=== PATIENT | female | born 1985 | race Hispanic/Latino ===

== ENCOUNTER 2017-10-26 14:01 | Outpatient (CLI) | payer BC | END 2017-10-26 14:02 | disposition home or self-care (01) | LOC: DTY/OP 14:01 | PROVIDERS: ATTEND Surgery | DX: E66.01 Morbid (severe) obesity due to excess calories (principal) | CPT/HCPCS: 97802 ==

== ENCOUNTER 2017-11-18 08:40 | Emergency (ER) | payer BC ==
[2017-11-18 09:12] LABS: Bilirubin Negative (Negative); Blood, Urine Negative (Negative); Clarity Slightly Cloudy (Clear); Glucose, Urine (Dipstick) Negative (Negative); Leukocyte Negative (Negative); Nitrite Negative (Negative); Protein, Urine (Dipstick) Negative (Neg-Trace); Urobilinogen 0.2 mg/dL (0.2-1.0); pH, Urine 6.5 (5.0-9.0)
[2017-11-18 09:13] LABS: Pregnancy Test - Urine (BHCG) Negative (Negative); Pregu Control Background? CLEAR/WHITE (CLR/WHITE); Pregu Control Bar Appear? YES (CONTROL BAR)
[2017-11-18] MEDS ORDERED: Ketorolac Tromethamine 60 MG/2 ML VIAL ONE (09:39)
== END 2017-11-18 10:05 | disposition home or self-care (01) ==
LOC: SCSER 08:40
DX: S29.012A Strain of muscle and tendon of back wall of thorax, initial encounter (principal); E28.2 Polycystic ovarian syndrome; F32.9 Major depressive disorder, single episode, unspecified; X58.XXXA Exposure to other specified factors, initial encounter
CPT/HCPCS: 81003; 81025; 96372; J1885

== ENCOUNTER 2017-12-21 09:00 | Inpatient (IN) | payer BC ==
[2017-12-28] MEDS ORDERED: Heparin 5,000 UNITS/ML VIAL ONE (06:17)
[2017-12-28] MEDS ORDERED: Fentanyl 250 MCG/5 ML VIAL ONE (07:02)
[2017-12-28] MEDS ORDERED: Bupivacaine/Epinephrine 0.25% 30 ML VIAL ONE (07:03)
[2017-12-28] MEDS ORDERED: Levofloxacin 500 mg/D5W 100 ml Premix Bag ONE (07:20)
[2017-12-28] MEDS ORDERED: Midazolam HCl 2 mg/2 ml Vial ONE (07:20)
[2017-12-28] MEDS ORDERED: Ondansetron HCl/PF 4 MG/2 ML Vial ONE ×2 (07:29→16:10)
[2017-12-28] MEDS ORDERED: Promethazine HCl 25 MG/ML VIAL SLOW IVP PRN (08:32)
[2017-12-28] MEDS ORDERED: Promethazine HCl 25 MG/ML VIAL IM PRN ×3 (08:32→10:39)
[2017-12-28] MEDS ORDERED: Ondansetron HCl/PF 4 MG/2 ML Vial IVP PRN ×3 (08:32→10:39)
[2017-12-28] MEDS ORDERED: Zolpidem Tartrate 5 MG TAB PO PRN (09:04)
[2017-12-28] MEDS ORDERED: diphenhydrAMINE 25 MG CAP PO PRN (09:04)
[2017-12-28] MEDS ORDERED: diphenhydrAMINE 50 MG/ML VIAL IM PRN (09:04)
[2017-12-28] MEDS ORDERED: Naloxone HCl 0.4 mg/ml Vial IV PRN (09:04)
[2017-12-28] MEDS ORDERED: Fentanyl 5000 MCG/250 ML CADD IVPB PRN (09:04)
[2017-12-28] MEDS ORDERED: diphenhydrAMINE 50 MG/ML VIAL IVP PRN ×2 (09:04→10:39)
[2017-12-28] MEDS ORDERED: Communication Order-Pharmacy FS SCH (09:15)
[2017-12-28] MEDS ORDERED: fentaNYL Citrate/PF 2,000 MCG in Sodium Chloride 0.9% 60 ML IV PRN (09:30)
[2017-12-28] MEDS ORDERED: Fentanyl 100 MCG/2 ML VIAL ONE (09:38)
--- NOTE | 2017-12-28 10:10 | OP ---
DATE OF PROCEDURE: 12/28/2017 PREOPERATIVE DIAGNOSIS: Morbid obesity with a body mass index of 41. POSTOPERATIVE DIAGNOSIS: Morbid obesity with a body mass index of 41. PROCEDURE: Laparoscopic sleeve gastrectomy with Eucha staple line reinforcements and 38-E[place]ian bougie . SURGEON: Ramos Whitley M.D. ANESTHESIA: General. ESTIMATED BLOOD LOSS: Minimal. COMPLICATIONS: None. SPECIMEN: Stomach. FINDINGS: Normal postoperative esophagogastroduodenoscopy. INDICATION: The patient is a 32-year-old female, who presents for weight loss surgery. She has atte nded our seminar and had a psychologic evaluation. She understands risks and benefits to sleeve as w ell as alternative procedures for weight loss and she gives consent. TECHNIQUE: The patient was taken to the operating room and placed supine on the table. After genera l anesthetic was obtained, the arms and legs were double strapped to bariatric table. OG tube used t o decompress the stomach. The abdomen is prepped and draped in a sterile fashion. Left subcostal 5- mm Optiview trocar was placed in the usual fashion without injury. High-flow pneumoperitoneum was ob tained and 2 lower 12-mm ports were placed on each side of the umbilicus and 5-mm right subcostal por t is placed. The patient was placed in reverse Trendelenburg position. A 5-mm incision was made at the xiphoid and Teresa used to raise the liver off the GE junction. Short gastrics were taken bruno n from a distance of 5 cm proximal to the pylorus all the way up to the angle of His, posterior fundu s, and left luana of the diaphragm was completely dissected. Short gastrics were taken down to a dist ance of 5 cm proximal to the pylorus. A 38-E[place]ian bougie was brought in and its tip left in the antr um of the stomach. Multiple loads of an Rison stapling device used to form the sleeve. The first fired up a distance of 6 cm proximal to the pylorus, angled up to the incisura. Care is taken to gopi id being too close to incisura. Multiple loads were then fired up along the bougie, stomach was comp letely transected at the angle of His. The stomach was removed from left abdominal incision. The fa scial defects closed using GraNee needle, 0 Vicryl tie. All ports were infiltrated using local anest hetic. EGD scope was passed into the esophagus, stomach to the level of duodenum without obstruction . There is no evidence of air leakage or stenosis. EGD scope was used to pull the stomach; it was p ulled and removed. Teresa removed under direct visualization without injury. All port sites were removed under direct camera visualization without bleeding. Pneumoperitoneum was let down. All inc isions were closed using 4-0 Monocryl and Dermabond. The patient went to recovery in stable conditio n. All instrument counts needle counts, and lap counts were correct.
[2017-12-28] MEDS ORDERED: Hydrocodone-Acetamin 15 ML UDCUP PO PRN (10:39)
[2017-12-28] MEDS ORDERED: hydrALAZINE 20 MG/ML VIAL SLOW IVP PRN (10:39)
[2017-12-28] MEDS ORDERED: Dextrose 50% Abboject 50 ML SYRINGE SLOW IVP PRN (10:39)
[2017-12-28] MEDS ORDERED: Dextrose 5% in Water 1,000 ML IV PRN (10:39)
[2017-12-28 10:44] VITALS: BMI 41.1
[2017-12-28] MEDS ORDERED: Pantoprazole 40 MG VIAL IVP SCH (11:00)
[2017-12-28] MEDS: Acetaminophen 1,000 MG in Premix Bag 1 BAG IVPB SCH ×3 (11:03→23:23)
[2017-12-28] MEDS: D5 1/2 NS w/20 mEq KCL 1,000 ML IV SCH ×2 (11:03→22:41)
[2017-12-28] MEDS ORDERED: Ketorolac Tromethamine 30 MG/ML VIAL ONE (16:10)
[2017-12-28] MEDS ORDERED: Lidocaine 1% PF 5 ML VIAL ONE (16:10)
[2017-12-28] MEDS ORDERED: PROPOFOL 200 MG/20 ML VIAL ONE (16:10)
[2017-12-28] MEDS ORDERED: Glycopyrrolate 0.2 MG/ML 5 ML SYRINGE ONE (16:10)
[2017-12-28] MEDS ORDERED: rOPINIRole HCl 0.25 MG TAB PO SCH (21:00)
[2017-12-28] MEDS ORDERED: Enoxaparin Sodium 40 MG/0.4 ML SYRINGE SC SCH (21:00)
[2017-12-29] MEDS: D5 1/2 NS w/20 mEq KCL 1,000 ML IV SCH (03:54)
[2017-12-29 05:43] LABS: #Lymphocytes 2.9 thou/uL (1.20-3.40); #Monocytes 1.1 thou/uL (0.11-0.59); #Neutrophils 11.6 thou/uL (1.40-6.50); %Basophils 0.1 % (0.0-1.0); %Eosinophils 0.1 % (0.0-10.0); %Lymphocytes 18.4 % (21.0-51.0); %Monocytes 7.1 % (0.0-10.0); %Neutrophils 74.3 % (42.0-75.0); Mean Corpuscular HGB CONC 34.9 g/dL (32.0-36.0); Mean Corpuscular Hemoglobin 31.7 pg (27.0-31.0); Mean Corpuscular Volume 90.8 fl (81.0-99.0); Platelet Count 335 thou/uL (130-400); RBC Distribution Width 11.7 % (11.5-14.5); Red Blood Cell (RBC) Count 4.11 mill/uL (4.20-5.40); White Blood Cell (WBC) Count 15.7 thou/uL (4.8-10.8)
[2017-12-29 06:00] LABS: Anion Gap 9 mmol/L (10-20); BUN (Urea Nitrogen) 5 mg/dL (7.0-18.7); Calc. Creatinine Clearance 222 mL/min (70-130); Calcium 9.1 mg/dL (7.8-10.44); Carbon Dioxide 25 mmol/L (22-29); Chloride 106 mmol/L (98-107); Estimated GFR-MDRD Greater than 90; Glucose 111 mg/dL (70-105); Potassium 4.2 mmol/L (3.5-5.1); Sodium 136 mmol/L (136-145)
[2017-12-29 07:57] VITALS: BP 143/89; TEMP 98.2
[2017-12-29] MEDS ORDERED: Hydrocodone-Acetamin 15 ML UDCUP PO PRN (08:32)
[2017-12-29] MEDS ORDERED: Pantoprazole 40 MG VIAL IVP SCH (09:00)
--- NOTE | 2017-12-29 12:10 | DIS ---
DATE OF ADMISSION: 12/28/2017 DATE OF DISCHARGE: 12/29/2017 ADMITTING DIAGNOSIS: Morbid obesity. DISCHARGE DIAGNOSIS: Morbid obesity. PROCEDURES: Laparoscopic sleeve gastrectomy by Dr. Whitley without complication. CONDITION ON DISCHARGE: Improved. STAFF: Dr. Ramos Whitley. HOSPITAL COURSE: The patient went to the floor postop on a liquid diet, which she tolerated. Her pa in is well controlled without nausea, vomiting. On the day of discharge, she is ambulatory, minimal pain, tolerating liquid diet. She will be discharged home on Lortab, Elixir, Zofran dissolvable as w ell as pantoprazole. She will follow up with me in the office in 2 weeks.
== END 2017-12-29 09:54 | disposition home or self-care (01) | DRG 621 ==
LOC: SURG A 12-28 06:08
PROVIDERS: ADMIT Surgery; ATTEND Surgery
PROC: 0DB64Z3 Excision of Stomach, Percutaneous Endoscopic Approach, Vertical (ICD-10-PCS; principal; 2017-12-28)
DX: E66.01 Morbid (severe) obesity due to excess calories (principal); G25.81 Restless legs syndrome; Z68.41 Body mass index [BMI] 40.0-44.9, adult; Z79.899 Other long term (current) drug therapy; Z88.1 Allergy status to other antibiotic agents; Z90.49 Acquired absence of other specified parts of digestive tract
CPT/HCPCS: 36415; 80048; 85025; 88307; 88312; C9113; J0131; J1644; J1650; J1885; J1956; J2001; J2250; J2405; J2550; J2704; J3010; J7050

== ENCOUNTER 2017-12-21 09:01 | Outpatient (CLI) | payer BC ==
[2017-12-21 10:05] LABS: #Basophils 0.1 thou/uL (0.0-0.2); #Eosinphils 0.2 thou/uL (0.0-0.7); #Lymphocytes 4.2 thou/uL (1.20-3.40); #Monocytes 0.7 thou/uL (0.11-0.59); #Neutrophils 6.1 thou/uL (1.40-6.50); %Basophils 1.1 % (0.0-1.0); %Eosinophils 1.7 % (0.0-10.0); %Lymphocytes 37.4 % (21.0-51.0); %Neutrophils 53.8 % (42.0-75.0); Hemoglobin 14.6 g/dL (12.0-16.0); Mean Corpuscular HGB CONC 34.4 g/dL (32.0-36.0); Mean Corpuscular Hemoglobin 31.7 pg (27.0-31.0); Mean Corpuscular Volume 92.1 fl (81.0-99.0); Mean Platelet Volume 7.5 fL (7.4-10.4); Platelet Count 329 thou/uL (130-400); RBC Distribution Width 11.6 % (11.5-14.5); Red Blood Cell (RBC) Count 4.62 mill/uL (4.20-5.40); White Blood Cell (WBC) Count 11.3 thou/uL (4.8-10.8)
[2017-12-21 10:12] LABS: Hemoglobin A1c 4.4 % (4.0-6.0)
[2017-12-21 10:13] LABS: BHCG - Serum Negative (NEGATIVE); Pregs Control Background? CLEAR/WHITE (CLR/WHITE); Pregs Control Bar Appear? YES (CONTROL BAR)
[2017-12-21 10:26] LABS: ALT (SGPT) 27 U/L (8-55); AST (SGOT) 16 U/L (5-34); Albumin 4.3 g/dL (3.5-5.0); Alkaline Phosphatase 75 U/L (40-150); Anion Gap 11 mmol/L (10-20); BUN (Urea Nitrogen) 13 mg/dL (7.0-18.7); Bilirubin, Direct 0.2 mg/dL (0.1-0.3); Bilirubin, Total 0.4 mg/dL (0.2-1.2); Calc. Creatinine Clearance 0 mL/min (70-130); Calcium 9.4 mg/dL (7.8-10.44); Carbon Dioxide 24 mmol/L (22-29); Chloride 107 mmol/L (98-107); Estimated GFR-MDRD 74; Glucose 103 mg/dL (70-105); Protein, Total 7.3 g/dL (6.0-8.3); Sodium 138 mmol/L (136-145)
--- NOTE | 2017-12-21 11:49 | RAD ---
PA AND LATERAL VIEWS OF CHEST: Date: 12/21/17 HISTORY: Preoperative evaluation. FINDINGS: The cardiomediastinum is normal. The lungs are expanded and clear. The bony thorax is normal. IMPRESSION: Normal exam. POS: JOHAN
== END 2017-12-21 09:02 | disposition home or self-care (01) ==
LOC: LABBT 09:01
PROVIDERS: ATTEND Surgery
DX: Z01.818 Encounter for other preprocedural examination (principal); E66.01 Morbid (severe) obesity due to excess calories
CPT/HCPCS: 71046; 80053; 80076; 83036; 84703; 85025; 93005; 93010